=== PATIENT | male | born 1975 | race Two or more races ===

== ENCOUNTER 2023-11-12 10:53 | Emergency (ER) | payer BC ==
[~2023-11-12] VITALS: Ht 167.6 cm; Wt 74.1 kg
[2023-11-12 11:50] LABS: BASOPHILS # (AUTO) 0.1 X10'3 (0-0.2); EOSINOPHILS # (AUTO) 0.2 X10'3 (0-0.9); EOSINOPHILS % (AUTO) 3.2 % (0-6); HEMATOCRIT 48.9 % (42.0-52.0); HEMOGLOBIN 16.1 g/dl (14.0-17.9); LYMPHOCYTES # (AUTO) 2.4 X10'3 (1.1-4.8); LYMPHOCYTES % (AUTO) 35.5 % (21-51); MEAN CORPUSCULAR HEMOGLOBIN 28.2 PG (27.0-31.0); MEAN CORPUSCULAR HGB CONC 32.9 g/dL (33.0-36.5); MEAN CORPUSCULAR VOLUME 85.5 FL (78-98); MEAN PLATELET VOLUME 7.9 FL (7.4-10.4); MONOCYTES # (AUTO) 0.6 X10'3 (0-0.9); MONOCYTES % (AUTO) 8.3 % (2-12); NEUTROPHILS # (AUTO) 3.5 X10'3 (1.8-7.7); PLATELET COUNT 249 X10'3 (140-440); RED BLOOD COUNT 5.71 X10'6 (4.70-6.10); RED CELL DISTRIBUTION WIDTH 13.5 % (11.5-14.5); WHITE BLOOD COUNT 6.7 X10'3 (4.5-11.0)
[2023-11-12] MEDS: famotidine/PF 10 mg/ml inj IV ONE ×2 (11:58)
[2023-11-12] MEDS: ondansetron/PF 4mg/2ml inj IV ONE (12:00)
[2023-11-12] MEDS: sucralfate 1 gm tablet PO ONE ×2 (12:02)
[2023-11-12] MEDS: mag hydrox/Alum hydrox/simeth 30ml oral suspension PO ONE (12:02)
[2023-11-12 12:07] LABS: ALANINE AMINOTRANSFERASE 32 U/L (12-78); ALBUMIN 3.6 G/DL (3.4-5.0); ALKALINE PHOSPHATASE 99 IU/L (46-116); ANION GAP 7 (8-16); ASPARTATE AMINO TRANSFERASE 16 U/L (10-37); BILIRUBIN,TOTAL 0.8 MG/DL (0.1-1.0); BLOOD UREA NITROGEN 14 MG/DL (7-18); BUN/CREATININE RATIO 14.4 (10.0-20.0); CHLORIDE 103 MMOL/L (99-107); CREATININE 0.97 MG/DL (0.60-1.10); GLUCOSE 92 MG/DL (70-104); LIPASE 43 U/L (16-77); POTASSIUM 3.8 MMOL/L (3.5-5.1); SODIUM 137 MMOL/L (135-145); TOTAL CARBON DIOXIDE 26.6 MMOL/L (24-32); TOTAL PROTEIN 7.1 G/DL (6.4-8.2); eCRCL 84 ML/MIN; eGFR 83 ML/MIN
[2023-11-12] MEDS ORDERED: ONDA4TAB12 PO (13:16)
[2023-11-12] MEDS ORDERED: SIME125C PO (13:16)
[2023-11-12] MEDS ORDERED: FAMO-129 PO (13:16)
[2023-11-12] MEDS ORDERED: SUCR1TAB34 PO (13:16)
[2023-11-12 13:36] VITALS: BP 143/82; PULSE 110; RESP 16; TEMP 98; O2SAT 98
== END 2023-11-12 13:37 | disposition home or self-care (01) ==
LOC: ER 10:54
DX: K29.00 Acute gastritis without bleeding (principal); Z88.2 Allergy status to sulfonamides; Z79.899 Other long term (current) drug therapy
CPT/HCPCS: 36415; 76700; 80053; 83690; 85025; 93005; 96374; 96375; 99285; J2405; J3490

== ENCOUNTER 2023-11-13 07:05 | Day surgery (SDC) | payer BC ==
[~2023-11-13 07:05] MED LIST: FAMO-129 PO; ONDA4TAB12 PO; SIME125C PO; SUCR1TAB34 PO
[2023-11-13] MEDS ORDERED: LIDOcaine 2% Viscous 15ml cup ONE (07:08)
[2023-11-13] MEDS ORDERED: MIDAZolam 1 MG/ML 5ML VIAL ONE (07:18)
[2023-11-13] MEDS ORDERED: diphenhydrAMINE 50 mg/ml inj ONE (07:18)
[2023-11-13] MEDS ORDERED: fentaNYL/PF 50MCG/1 ML 2ML syringe ONE (07:18)
[2023-11-13 07:23] VITALS: BP 131/88; PULSE 90; RESP 19
[2023-11-13 07:52] VITALS: BP 112/84; PULSE 82; RESP 20; O2SAT 97
[2023-11-13 08:02] VITALS: BP 126/73; PULSE 90; RESP 18; O2SAT 98
[2023-11-13 08:12] VITALS: BP 112/80; PULSE 76; RESP 18; O2SAT 98
[2023-11-13 08:21] VITALS: BP 115/78; PULSE 77; RESP 18; O2SAT 98
== END 2023-11-13 08:40 | disposition home or self-care (01) ==
LOC: GI LAB 07:05
PROVIDERS: ATTEND Internal Medicine Gastroenterology
DX: R10.13 Epigastric pain (principal); K29.50 Unspecified chronic gastritis without bleeding; K31.89 Other diseases of stomach and duodenum
CPT/HCPCS: 43239; 99152; J1200; J2250; J3010; J7030; Z7512; A4620